=== PATIENT | male | born 2000 | race Hispanic/Latino ===

== ENCOUNTER → 2024-09-16 | Day surgery (SDC) | payer BC | LOC: SDC 14:30 | PROVIDERS: ATTEND Internal Medicine Gastroenterology | PROC: 4A1B7BZ Monitoring of Gastrointestinal Pressure, Via Natural or Artificial Opening (ICD-10-PCS; principal; 2024-09-16) | DX: K21.9 Gastro-esophageal reflux disease without esophagitis (principal); R13.10 Dysphagia, unspecified; R63.4 Abnormal weight loss; F41.9 Anxiety disorder, unspecified; Z98.890 Other specified postprocedural states; Z79.899 Other long term (current) drug therapy | CPT/HCPCS: 91010; 91034 ==

== ENCOUNTER 2024-09-30 14:11 | Outpatient (CLI) | payer BC | END 2024-09-30 14:12 | disposition home or self-care (01) | LOC: MRI 14:11 | PROVIDERS: ATTEND Family Medicine Sports Medicine | DX: S43.084A Other dislocation of right shoulder joint, initial encounter (principal); M21.821 Other specified acquired deformities of right upper arm; R60.0 Localized edema ==